=== PATIENT | male | born 1950 | race Caucasian/White ===

== ENCOUNTER 2024-10-21 12:45 | Outpatient (CLI) | payer BC, SELFPAY | END 2024-10-21 12:46 | disposition home or self-care (01) | LOC: MRI 12:46 | PROVIDERS: PCP Family Medicine; Visit Provider Orthopaedic Surgery Sports Medicine | DX: M25.511 Pain in right shoulder (principal); M75.101 Unspecified rotator cuff tear or rupture of right shoulder, not specified as traumatic; S46.211A Strain of muscle, fascia and tendon of other parts of biceps, right arm, initial encounter; M75.01 Adhesive capsulitis of right shoulder; M75.51 Bursitis of right shoulder | CPT/HCPCS: 73221 ==